=== PATIENT | female | born 1965 | race African-American/Black ===

== ENCOUNTER 2022-06-12 12:32 | Emergency (ER) | payer OTHER ==
[~2022-06-12] VITALS: Ht 167.6 cm; Wt 59.0 kg
[2022-06-12] MEDS ORDERED: CYCLOBENZAPRINE 10MG TABLET PO ONE (13:15)
[2022-06-12] MEDS: KETOROLAC 30MG/ML VIAL IM STA ×2 (13:40→13:41)
[2022-06-12 15:05] LABS: CLARITY URINE CLEAR (CLEAR); COLOR URINE DARK YELLOW (YELLOW); KETONES URINE NEGATIVE (NEGATIVE); LEUKOCYTE ESTERASE URINE NEGATIVE (NEGATIVE); NITRITE URINE NEGATIVE (NEGATIVE); OCCULT BLOOD URINE NEGATIVE (NEGATIVE); PH URINE 5.5 (4.5-8.0); PROTEIN URINE 1+ (NEGATIVE); SPECIFIC GRAVITY URINE 1.029 (1.005-1.030)
[2022-06-12 15:05] LABS: CHLORIDE 104 mEq/L (98-107)
[2022-06-12 15:14] LABS: ETHANOL BLOOD < 10 mg/dL
[2022-06-12] MEDS ORDERED: CYCL10TA21 MT (15:15)
[2022-06-12 15:19] LABS: *AMPHETAMINES SCREEN URINE NEGATIVE (NEGATIVE); *BARBITURATES SCREEN URINE NEGATIVE (NEGATIVE); *BENZODIAZEPINES SCREEN URINE NEGATIVE (NEGATIVE); *COCAINE SCREEN URINE PRESUMTIVE POSITIVE (NEGATIVE); CANNABINOID URINE SCREEN PRESUMTIVE POSITIVE (NEGATIVE); METHADONE URINE SCREEN NEGATIVE (NEGATIVE); OPIATES URINE SCREEN NEGATIVE (NEGATIVE); PHENCYCLIDINE URINE SCREEN NEGATIVE (NEGATIVE)
[2022-06-12 15:40] LABS: BASOPHILS % 0.8 % (0.0-2.0); EOSINOPHILS % 2.4 % (0.0-5.0); HEMATOCRIT. 35.4 % (36.0-48.0); HEMOGLOBIN. 12.1 g/dL (12.0-16.0); MEAN CORPUSCULAR HEMOGLOBIN 47.5 pg (28.0-32.0); MEAN CORPUSCULAR VOLUME 138.6 fL (81.0-99.0); MEAN PLATELET VOLUME 10.2 fl (7.4-10.4); MONOCYTES % 5.5 % (2.0-8.0); NEUTROPHILS % 50.3 % (40.0-76.0); PLATELET 311 x1000/uL (130-400); RED BLOOD CELL COUNT 2.55 mill/uL (4.2-5.4); RED CELL DISTRIBUTION WIDTH 15.9 % (11.6-14.6)
[2022-06-12 16:04] VITALS: BP 133/70
[2022-06-12 22:08] LABS: PLATELET ESTIMATE NORMAL
== END 2022-06-12 16:05 | disposition home or self-care (01) ==
LOC: ER 12:32
DX: F14.10 Cocaine abuse, uncomplicated (principal); E11.9 Type 2 diabetes mellitus without complications; I10 Essential (primary) hypertension; J45.909 Unspecified asthma, uncomplicated; Z88.0 Allergy status to penicillin; Z88.6 Allergy status to analgesic agent
CPT/HCPCS: 36415; 71045; 80053; 80305; 80320; 81003; 85025; 85044; 85660; 99284; J1885; G0480

== ENCOUNTER 2024-09-21 11:07 | Emergency (ER) | payer MEDICAID ==
[~2024-09-21] VITALS: Ht 165.1 cm; Wt 66.0 kg
[~2024-09-21 11:07] MED LIST: CYCL10TA21 MT
[2024-09-21 11:12] VITALS: O2SAT 99
[2024-09-21] MEDS: ACETAMINOPHEN 325MG TABLET PO ONE (13:15)
[2024-09-21] MEDS ORDERED: ACETAMINOPHEN 500MG TABLET PO ONE (14:00)
[2024-09-21 14:04] LABS: BASOPHILS % 0.6 % (0.0-2.0); EOSINOPHILS % 1.0 % (0.0-5.0); HEMATOCRIT. 47.6 % (36.0-48.0); HEMOGLOBIN. 16.0 g/dL (12.0-16.0); LYMPHOCYTES % 37.4 % (20.0-50.0); MEAN PLATELET VOLUME 10.6 fl (7.4-10.4); MONOCYTES % 8.2 % (2.0-8.0); NEUTROPHILS % 52.8 % (40.0-76.0); PLATELET 184 x1000/uL (130-400); RED BLOOD CELL COUNT 4.08 mill/uL (4.2-5.4); RED CELL DISTRIBUTION WIDTH 19.0 % (11.6-14.6)
[2024-09-21 14:05] LABS: ADD RBC MORPHOLOGY YES
[2024-09-21 14:07] LABS: INR 1.0
[2024-09-21 14:12] LABS: CREATININE 1.2 mg/dL (0.6-1.0); UREA NITROGEN BLOOD 28 mg/dL (9-23)
[2024-09-21 14:14] LABS: ASPARTATE AMINOTRANSFERASE 14 IU/L (<34); BILIRUBIN DIRECT 0.3 mg/dL (<=3.0)
[2024-09-21 14:15] LABS: BILIRUBIN TOTAL 1.4 mg/dL (0.1-1.0); PROTEIN TOTAL 8.1 g/dL (6.0-8.3)
[2024-09-21 14:18] LABS: CLARITY URINE CLEAR (CLEAR); COLOR URINE YELLOW (YELLOW); GLUCOSE URINE NEGATIVE (NEGATIVE); KETONES URINE NEGATIVE (NEGATIVE); LEUKOCYTE ESTERASE URINE 2+ (NEGATIVE); NITRITE URINE NEGATIVE (NEGATIVE); OCCULT BLOOD URINE NEGATIVE (NEGATIVE); PH URINE 7.5 (4.5-8.0); PROTEIN URINE NEGATIVE (NEGATIVE); SPECIFIC GRAVITY URINE 1.008 (1.005-1.030); UROBILINOGEN URINE 0.2 E.U./dL (0.2-1.0)
[2024-09-21 14:24] LABS: PLATELET ESTIMATE NORMAL
[2024-09-21 14:43] LABS: BACTERIA URINE 1+; RBC URINE 0-2 /hpf (0-2); SQUAMOUS EPITHELIAL CELL URINE FEW /lpf (RARE/1+); YEAST URINE NONE SEEN
[2024-09-21] MEDS ORDERED: SODIUM BICARBONATE 8.4% 50MEQ/50ML SYR IV SCH (15:15)
[2024-09-21 16:35] LABS: INFLUENZA TYPE A Presumptive Negative (Pres. Neg.); INFLUENZA TYPE B Presumptive Negative (Pres. Neg.)
[2024-09-21 16:36] LABS: RESPIRATORY SYNCYTIAL VIRUS Not Detected (Not Detectd)
[2024-09-21] MEDS: TRAMADOL 50MG TABLET PO ONE (16:45)
[2024-09-21] MEDS: SODIUM POLYSTYRENE SULFONATE 15 G/60 ML BOT PO SCH (16:45)
[2024-09-21] MEDS: INSULIN REGULAR (HUMULIN R) 1000UNITS/10ML VIAL IV ONE (16:47)
[2024-09-21] MEDS: SODIUM CHLORIDE 0.9% 1,000 ML IV ONE (16:48)
[2024-09-21] MEDS: TRAMADOL 50MG TABLET PO SCH (16:49)
[2024-09-21] MEDS ORDERED: ACETAMINOPHEN 500MG TABLET PO SCH (17:00)
[2024-09-21] MEDS ORDERED: INSULIN REGULAR (HUMULIN R) 1000UNITS/10ML VIAL IV SCH (17:00)
[2024-09-21 17:01] VITALS: BP 127/82; PULSE 71; RESP 18; TEMP 36.6; O2SAT 100
== END 2024-09-21 18:07 | disposition hospice, inpatient (51) ==
LOC: ER 11:07 → CMPBEDREQ 09-22 19:22
DX: E11.65 Type 2 diabetes mellitus with hyperglycemia (principal); I10 Essential (primary) hypertension; D57.1 Sickle-cell disease without crisis; Z86.73 Personal history of transient ischemic attack (TIA), and cerebral infarction without residual deficits; E87.5 Hyperkalemia; Z20.822 Contact with and (suspected) exposure to COVID-19; Z88.0 Allergy status to penicillin; Z88.6 Allergy status to analgesic agent
CPT/HCPCS: 80076; 80048; 81003; 83690; 83735; 85025; 85610; 85651; 85730; 87420; 87804 ×2; 36415; 71045; 96361; 96374; 99291; 87426; J1815; J7030; Z7610 ×3